=== PATIENT | female | born 1940 | race Caucasian/White ===

== ENCOUNTER 2017-01-12 19:14 | Emergency (ER) | payer MEDICARE ==
[~2017-01-12] VITALS: Ht 157.5 cm; Wt 62.0 kg
[~2017-01-12 19:14] MED LIST: CARV3.125 PO; CITA20TA4 PO; IRON27TA PO; MONT10TA4 PO; PRAD150C PO; ROSU1TAB8 PO; VITA PO; VITA200012 PO; VITA500T PO
[2017-01-12 19:17] VITALS: BP 226/88; PULSE 76; RESP 16; TEMP 98; O2SAT 97
== END 2017-01-12 22:18 | disposition left against medical advice (07) ==
LOC: NED 19:14
DX: R68.89 Other general symptoms and signs (principal)
CPT/HCPCS: 99281